=== PATIENT | female | born 1970 | race Asian ===

== ENCOUNTER 2017-11-10 08:45 | Outpatient (CLI) | payer OTHER | END 2017-11-10 21:26 | disposition home or self-care (01) | LOC: MAMMO 08:45 | DX: Z12.31 Encounter for screening mammogram for malignant neoplasm of breast (principal) ==

== ENCOUNTER 2017-11-19 10:44 | Outpatient (CLI) | payer OTHER | END 2017-11-19 22:37 | disposition home or self-care (01) | LOC: MAMMO 10:44 | DX: N64.89 Other specified disorders of breast (principal) ==

== ENCOUNTER 2018-05-31 10:31 | Outpatient (CLI) | payer OTHER | END 2018-05-31 21:05 | disposition home or self-care (01) | LOC: MAMMO 10:31 | DX: R92.2 Inconclusive mammogram (principal) ==

== ENCOUNTER 2019-08-16 10:45 | Outpatient (CLI) | payer OTHER | END 2019-08-16 20:28 | disposition home or self-care (01) | LOC: MAMMO 10:45 | DX: Z12.31 Encounter for screening mammogram for malignant neoplasm of breast (principal) ==

== ENCOUNTER 2021-11-14 13:22 | Outpatient (CLI) | payer OTHER | END 2021-11-14 20:48 | disposition home or self-care (01) | LOC: MAMMO 13:22 | PROVIDERS: ATTEND Internal Medicine | DX: Z12.31 Encounter for screening mammogram for malignant neoplasm of breast (principal) ==